=== PATIENT | male | born 1960 | race African-American/Black ===

== ENCOUNTER 2025-03-10 00:26 | Inpatient (IN) | payer OTHER ==
[2025-03-10 01:27] LABS: #Basophils 0.03 10x3/uL (0.0-0.2); #Eosinophils 0.20 10x3/uL (0.0-0.7); #Monocytes 0.78 10x3/uL (0.11-0.59); #Neutrophils 3.88 10x3/uL (1.40-6.50); %Basophils 0.5 % (0.0-1.0); %Eosinophils 3.2 % (0.0-10.0); %Lymphocytes 22.1 % (21.0-51.0); %Monocytes 12.4 % (0.0-10.0); %Neutrophils 61.6 % (42.0-75.0); Hematocrit 38.4 % (42.0-52.0); Hemoglobin 12.6 g/dL (14.0-18.0); Mean Corpuscular Hemoglobin 29.6 pg (27.0-31.0); Mean Corpuscular Volume 90.1 fL (78.0-98.0); Platelet Count 204 10x3/uL (130-400); Red Blood Cell (RBC) Count 4.26 mill/uL (4.70-6.10); White Blood Cell (WBC) Count 6.29 10x3/uL (4.8-10.8)
[2025-03-10 01:44] LABS: ALT (SGPT) 19 U/L (Less than 45); AST (SGOT) 23 U/L (11-34); Albumin 3.4 g/dL (3.1-4.5); Alkaline Phosphatase 82 U/L (40-110); Anion Gap 13 mmol/L (10-20); BUN (Urea Nitrogen) 15 mg/dL (8.4-25.7); Bilirubin, Total 0.5 mg/dL (0.3-1.2); Calc. Creatinine Clearance 0 mL/min (70-130); Calcium 8.9 mg/dL (7.8-10.44); Carbon Dioxide 22 mmol/L (23-31); Chloride 110 mmol/L (98-107); Globulin 3.6 g/dL (2.4-3.5); Glucose 97 mg/dL (80-115); Potassium 3.9 mmol/L (3.5-5.1); Sodium 141 mmol/L (136-145)
[2025-03-10] MEDS ORDERED: Furosemide 40 MG (4 mL) VIAL ONE (04:08)
[2025-03-10 05:09] LABS: Lipase 31 U/L (8-78); Magnesium 1.9 mg/dL (1.6-2.6)
[2025-03-10] MEDS ORDERED: Aspirin Chewable 81 MG TAB ONE (09:23)
[2025-03-10] MEDS ORDERED: Iopamidol-370 76% 500 ML MDV (1 ML CHARGE) ONE (11:04)
[2025-03-10 12:53] VITALS: BMI 29.9
[2025-03-10] MEDS ORDERED: Acetaminophen 500 MG TAB PO PRN (13:07)
[2025-03-10] MEDS ORDERED: Acetaminophen 325 MG TAB PO PRN (13:07)
[2025-03-10] MEDS ORDERED: Dextrose 50% Abboject 50 ML SYRINGE SLOW IVP PRN (13:07)
[2025-03-10] MEDS ORDERED: Ondansetron PF 4 MG/2 ML Vial IVP PRN ×2 (13:07)
[2025-03-10] MEDS ORDERED: hydrALAZINE 20 MG/ML VIAL SLOW IVP PRN (13:07)
[2025-03-10] MEDS ORDERED: Glucagon 1 MG/ML KIT IM PRN (13:07)
[2025-03-10] MEDS: Metoprolol Succinate XL 25 MG ER.TAB PO SCH (14:24)
[2025-03-10] MEDS: Furosemide 40 MG (4 mL) VIAL SLOW IVP SCH (14:28)
[2025-03-10] MEDS: Spironolactone 25 MG TAB PO SCH (14:28)
[2025-03-10] MEDS: Famotidine 20 MG TAB PO SCH (19:29)
[2025-03-11 04:58] LABS: #Basophils 0.04 10x3/uL (0.0-0.2); #Eosinophils 0.24 10x3/uL (0.0-0.7); #Monocytes 0.90 10x3/uL (0.11-0.59); #Neutrophils 3.13 10x3/uL (1.40-6.50); %Basophils 0.7 % (0.0-1.0); %Eosinophils 4.4 % (0.0-10.0); %Lymphocytes 20.7 % (21.0-51.0); %Monocytes 16.5 % (0.0-10.0); %Neutrophils 57.5 % (42.0-75.0); Hematocrit 43.0 % (42.0-52.0); Hemoglobin 13.9 g/dL (14.0-18.0); Mean Corpuscular Hemoglobin 29.2 pg (27.0-31.0); Mean Corpuscular Volume 90.3 fL (78.0-98.0); Platelet Count 233 10x3/uL (130-400); Red Blood Cell (RBC) Count 4.76 mill/uL (4.70-6.10); White Blood Cell (WBC) Count 5.45 10x3/uL (4.8-10.8)
[2025-03-11 05:13] LABS: ALT (SGPT) 19 U/L (Less than 45); AST (SGOT) 23 U/L (11-34); Albumin 3.5 g/dL (3.1-4.5); Alkaline Phosphatase 79 U/L (40-110); Anion Gap 14 mmol/L (10-20); BUN (Urea Nitrogen) 17 mg/dL (8.4-25.7); Bilirubin, Total 0.9 mg/dL (0.3-1.2); Calc. Creatinine Clearance 72 mL/min (70-130); Calcium 9.4 mg/dL (7.8-10.44); Carbon Dioxide 29 mmol/L (23-31); Chloride 104 mmol/L (98-107); Globulin 3.8 g/dL (2.4-3.5); Glucose 88 mg/dL (80-115); Magnesium 2.1 mg/dL (1.6-2.6); Potassium 4.0 mmol/L (3.5-5.1); Sodium 143 mmol/L (136-145)
[2025-03-11] MEDS: Spironolactone 25 MG TAB PO SCH (09:00)
[2025-03-11] MEDS ORDERED: Metoprolol Succinate XL 25 MG ER.TAB PO SCH (09:00)
[2025-03-11] MEDS: Carvedilol 6.25 MG TAB PO SCH (17:15)
[2025-03-11] MEDS: FLU (Fluarix Triv) 25-26 (6MOS UP)/PF 45 MCG/0.5 ML Syringe IM ONE (17:17)
[2025-03-11] MEDS: PNEUMOC 20-VAL CONJ-DIP CRM/PF 0.5 ML SYRINGE IM ONE (17:19)
[2025-03-12 12:00] VITALS: BP 130/73; TEMP 97.5
== END 2025-03-12 15:37 | disposition home or self-care (01) | DRG 291 ==
LOC: ERS 00:26 → ERHOLD 09:57 → OBS 12:53 → OBSVTOIN 03-12 08:35
PROVIDERS: ADMIT Family Medicine; ATTEND Hospitalist
DX: I11.0 Hypertensive heart disease with heart failure (principal); I50.33 Acute on chronic diastolic (congestive) heart failure; N17.9 Acute kidney failure, unspecified; I42.0 Dilated cardiomyopathy; E11.9 Type 2 diabetes mellitus without complications; F15.10 Other stimulant abuse, uncomplicated; Z87.891 Personal history of nicotine dependence; F12.90 Cannabis use, unspecified, uncomplicated; Z79.84 Long term (current) use of oral hypoglycemic drugs; Z79.899 Other long term (current) drug therapy
CPT/HCPCS: 36415; 36416; 71045; 71275; 80053; 83690; 83735; 83880; 84443; 84484; 85025; 90471; 90656; 90677; 93005; 93306; 96374; 96376; G0009; G0378; J1940; Q9967